=== PATIENT | male | born 1945 | race Caucasian/White ===

== ENCOUNTER 2017-07-07 06:14 | Emergency (ER) | payer MEDICARE ==
[~2017-07-07] VITALS: Ht 177.8 cm; Wt 93.0 kg
[2017-07-07 06:32] LABS: GLUCOSE,POINT OF CARE 83 MG/DL (70-110)
[2017-07-07] MEDS ORDERED: ENOX40DI9 SQ (06:50)
[2017-07-07] MEDS ORDERED: ESCI20TA PO (06:50)
[2017-07-07] MEDS ORDERED: MOM30 PO (06:50)
[2017-07-07] MEDS ORDERED: ATOR40TA28 PO (06:50)
[2017-07-07] MEDS ORDERED: METF500T4 PO (06:50)
[2017-07-07] MEDS ORDERED: BISA10S PR (06:50)
[2017-07-07] MEDS ORDERED: FE PR (06:50)
[2017-07-07] MEDS ORDERED: BUPR75 PO (06:50)
[2017-07-07] MEDS ORDERED: QUET50XR PO (06:50)
[2017-07-07] MEDS ORDERED: INSU100V SQ (06:50)
[2017-07-07] MEDS ORDERED: [UNRECOGNIZED DRUG - CODE] IM (06:50)
[2017-07-07] MEDS ORDERED: ALPR0.5T8 PO (06:50)
[2017-07-07] MEDS ORDERED: IBUP-2070 PO (06:50)
[2017-07-07 07:44] LABS: BASOPHILS % (AUTO) 0.5 % (0.0-2.0); EOSINOPHILS % (AUTO) 1.2 % (1.0-6.0); HEMATOCRIT 43.3 % (41-53); HEMOGLOBIN 14.8 g/dL (13.5-17.5); LYMPHOCYTES # (AUTO) 1.2 K/uL (1.0-4.8); LYMPHOCYTES % (AUTO) 15.3 % (22.0-44.0); MEAN CORPUSCULAR HEMOGLOBIN 31.1 pg (26.0-34.0); MEAN CORPUSCULAR HGB CONC 34.1 G/dL (31.0-37.0); MEAN CORPUSCULAR VOLUME 91 fL (80-100); MONOCYTES # (AUTO) 0.5 K/uL (0.1-1.0); MONOCYTES % (AUTO) 5.8 % (2.0-9.0); NEUTROPHILS # (AUTO) 6.1 K/uL (1.8-7.7); NEUTROPHILS % (AUTO) 77.2 % (40.0-70.0); PLATELET COUNT (AUTO) 163 K/uL (150-450); RED BLOOD CELL COUNT(AUTO) 4.75 MIL/uL (4.50-5.90); RED CELL DISTRIBUTION WIDTH 13.7 % (11.5-14.5)
[2017-07-07 11:42] LABS: ANION GAP 11 mmol/L (8-16); CARBON DIOXIDE 26 mmol/L (22-29); CHLORIDE 104 mmol/L (98-107); CREATININE 0.89 mg/dL (0.60-1.30); GLOMERULAR FILTR. RATE CALC > 60 mL/min (>60); GLUCOSE,RANDOM 131 mg/dL (70-110); POTASSIUM 4.3 mmol/L (3.5-5.1); SODIUM SERUM 141 mmol/L (136-145); UREA NITROGEN, BLOOD 24 mg/dL (7-18)
[2017-07-07 11:53] LABS: ALANINE AMINOTRANSFERASE 37 U/L (12-78); ALBUMIN 3.6 g/dL (3.4-5.0); ALKALINE PHOSPHATASE 124 U/L (46-116); ASPARTATE AMINOTRANSFERASE 24 U/L (15-37); BILIRUBIN,TOTAL 1.4 mg/dL (0.1-1.0); LIPASE 67 U/L (73-393); TOTAL PROTEIN, SERUM 6.5 g/dL (6.4-8.2)
[2017-07-07 12:37] LABS: AMPHET/METH SCREEN,URINE NEGATIVE (NEGATIVE); BARBITURATE SCREEN, URINE NEGATIVE (NEGATIVE); BENZODIAZEPINES SCREEN,URINE POSITIVE (NEGATIVE); CANNABINOID SCREEN,URINE NEGATIVE (NEGATIVE); COCAINE SCREEN,URINE NEGATIVE (NEGATIVE); METHADONE SCREEN, URINE NEGATIVE (NEGATIVE); OPIATE SCREEN,URINE NEGATIVE (NEGATIVE)
[2017-07-07 12:38] LABS: PHENCYCLIDINE SCREEN,URINE NEGATIVE (NEGATIVE)
[2017-07-07 13:03] LABS: APPEARANCE,URINE CLEAR (CLEAR); BILIRUBIN,URINE NEGATIVE (NEGATIVE); GLUCOSE, URINE (UA) NEGATIVE (NEGATIVE); KETONES,URINE NEGATIVE (NEGATIVE); LEUKOCYTE ESTERASE ,URINE NEGATIVE (NEGATIVE); NITRATE,URINE NEGATIVE (NEGATIVE); OCCULT BLOOD,URINE NEGATIVE (NEGATIVE); PROTEIN,URINE NEGATIVE (NEGATIVE)
[2017-07-07 13:10] LABS: BACTERIA,URINE Rare /HPF (None Seen); RBC,URINE None Seen /HPF (0-2); WBC,URINE 0-2 /HPF (0-5)
[2017-07-07 13:13] LABS: TRANSITIONAL EPI CELLS,URINE Rare /LPF (None Seen)
[2017-07-07 13:14] LABS: SQUAMOUS EPITHELIAL CELL,UR Rare /LPF (None Seen)
[2017-07-07 14:30] VITALS: BP 115/78
== END 2017-07-07 14:51 | disposition home or self-care (01) ==
LOC: EMS 06:15
DX: F03.90 Unspecified dementia, unspecified severity, without behavioral disturbance, psychotic disturbance, mood disturbance, and anxiety (principal); E78.00 Pure hypercholesterolemia, unspecified; J44.9 Chronic obstructive pulmonary disease, unspecified; F32.9 Major depressive disorder, single episode, unspecified; Z88.8 Allergy status to other drugs, medicaments and biological substances
CPT/HCPCS: 36415; 51702; 80053; 80307; 81001; 82962; 83690; 84484; 85025; 99285; G0480